=== PATIENT | male | born 1955 | race Caucasian/White ===

== ENCOUNTER → 2016-06-06 | Day surgery (SDC) | payer BC ==
[~2016-06-06] MED LIST: ATOR40TA PO; BUPIVACAINE HCL PF 0.5% 10 ML VIAL ONE; BUPIVACAINE HCL PF 0.5% 30 ML VIAL ONE; BUPIVACAINE/EPINEPHRINE 0.5% PF 30 ML VIAL ONE; GABA300C3 PO; HYDR-3129 PO; LACTATED RINGER'S 1,000 ML BAG IV ONE; LISI-357 PO; LORTA5 PO; METO50TA PO; MIDAZOLAM HCL 2 MG/2 ML VIAL ONE; MOBI15TA PO; PRAM0.25 PO; PRED1TAB PO; PROPOFOL 200 MG/20 ML AMP IV ONE; SERT-132 PO; SYMB80AE INH; ULTR50TA PO; ceFAZolin INJ 1,000 MG VIAL ONE
--- NOTE | 2016-06-06 10:16 | PD.OP ---
cc: Gabe Sam Jr., MD Operative Report Date of Surgery: Jun 06, 2016 Preoperative Diagnosis: right carpal tunnel syndrome Postoperative Diagnosis: same Procedure: right carpal tunnel release Anesthesia: LMA Surgeon: Gabe Sam [employer] Manager(s): staff Resident Surgeon: none Operation and Findings: This patient is a 61yo male with clinical right carpal tunnel syndrome, which was comfirmed on EMG. He failed conservative treatment such as activity modification, rest, NSAIDS and night splint. He is scheduled for the above- mentioned procedures. The planned procedure was discussed with the patient including the associated risks. The risks included but are not limited to bleeding, infection, nerve damage, failure to heal, possible need for reoperation, possible recurrence, or any associated risk of the anesthesia. He voiced understanding and agreed to proceed as planned. DESCRIPTION OF PROCEDURE: The patient was identified in the holding area and the correct operative site was identified by the surgeon's initials. Informed consent was obtained. The patient was then brought to the operating room and transferred to the operating table in supine position. Time-out was then performed at which point the surgeon, nursing staff, and anesthesia staff all confirmed the correct operative site and procedure. After adequate general LMA anesthesia was obtained, The RIGHT upper extremity was then prepped and draped in the usual sterile fashion. Planned skin incision was marked along the base of the patient's palm. Skin incision was then made and dissection was carried down with scalpel to the level of the palmar fascia which was sharply divided by the skin incision. Bleeding points were identified with electrocautery using bipolar electrocautery. Retractors were then placed to allow visualization of the distal extent of the transverse carpal ligament, and this was then divided longitudinally under direct vision. Metzenbaum scissors were used to dissect distal to this area to confirm the absence of any remaining crossing obstructing fibrous band. Retractors were then replaced proximally to allow visualization of proximal extent of the transverse carpal ligament and the release was continued proximally until complete release was performed. This was confirmed visually and with palpation. Next, Metzenbaum scissors were used to dissect anteroposterior adjacent antebrachial fascia, and this was divided longitudinally under direct vision. Carpal canal was then inspected. The median nerve was flattened and injected. No other abnormalities were noted. The tourniquet was then deflated and hemostasis was obtained. Wounds were then irrigated with normal saline and antibiotic additive. Skin incision was then closed with interrupted 2-0 nylon suture. The wound was then dressed with xeroform, 4 x 4s and a well padded volar soft dressing. The patient was then awakened, extubated, and transferred over to PACU in stable condition. There were no intraoperative or immediate postoperative complications. All counts were reported as correct. Gabe Sam Jr., MD Jun 06, 2016 10:16
== END | disposition home or self-care (01) ==
LOC: ESDC 08:30
PROVIDERS: ATTEND Orthopaedic Surgery
DX: G56.01 Carpal tunnel syndrome, right upper limb (principal)
CPT/HCPCS: 01810; 64721; J0690; J2250; J3010; J7120